=== PATIENT | female | born 1995 | race Caucasian/White ===

== ENCOUNTER 2016-07-27 15:59 | Outpatient (CLI) | payer BC ==
[2016-07-27 16:25] LABS: Bilirubin Negative (Negative); Blood, Urine Negative (Negative); Clarity Clear (Clear); Glucose, Urine (Dipstick) Negative (Negative); Leukocyte Small (Negative); Nitrite Negative (Negative); Protein, Urine (Dipstick) Negative (Neg-Trace)
== END 2016-07-27 16:00 ==
LOC: MADLABBHPM 15:59
PROVIDERS: ATTEND Family Medicine
DX: R30.0 Dysuria (principal)
CPT/HCPCS: 81001; 87086

== ENCOUNTER 2017-04-06 14:33 | Emergency (ER) | payer BC, OTHER ==
[2017-04-06 15:12] LABS: Bilirubin Negative (Negative); Blood, Urine Negative (Negative); Clarity Clear (Clear); Glucose, Urine (Dipstick) Negative (Negative); Leukocyte Negative (Negative); Nitrite Negative (Negative); Protein, Urine (Dipstick) Negative (Neg-Trace); Urobilinogen 0.2 mg/dL (0.2-1.0)
[2017-04-06 15:13] LABS: Bacteria/HPF Rare-Few HPF (None Seen); RBC/HPF None Seen HPF (0-3); Squamous Epithelial 0-3 HPF (0-3); WBC/HPF 0-3 HPF (0-3)
== END 2017-04-06 16:40 | disposition home or self-care (01) ==
LOC: MADERS 14:33
DX: O99.89 Other specified diseases and conditions complicating pregnancy, childbirth and the puerperium (principal); R10.2 Pelvic and perineal pain
CPT/HCPCS: 81001; 87086; 99283

== ENCOUNTER 2023-12-15 10:49 | Emergency (ER) | payer BC ==
[2023-12-15] MEDS ORDERED: Fluorescein Opthalmic Strip ONE (11:14)
[2023-12-15] MEDS ORDERED: Tetracaine 0.5% PF 4 ML BOT ONE (11:14)
== END 2023-12-15 12:29 | disposition home or self-care (01) ==
LOC: MADERS 10:49
DX: H11.31 Conjunctival hemorrhage, right eye (principal); F17.290 Nicotine dependence, other tobacco product, uncomplicated
CPT/HCPCS: 70486

== ENCOUNTER 2025-01-16 09:36 | Emergency (ER) | payer SELFPAY ==
[2025-01-16 10:36] LABS: #Basophils 0.1 thou/uL (0.0-0.2); #Eosinophils 0.2 thou/uL (0.0-0.7); #Lymphocytes 2.4 thou/uL (1.20-3.40); #Monocytes 0.8 thou/uL (0.11-0.59); #Neutrophils 10.3 thou/uL (1.40-6.50); %Basophils 1.0 % (0.0-1.0); %Eosinophils 1.1 % (0.0-10.0); %Lymphocytes 17.5 % (21.0-51.0); %Monocytes 6.0 % (0.0-10.0); %Neutrophils 74.4 % (42.0-75.0); Hematocrit 43.0 % (36.0-47.0); Hemoglobin 14.6 g/dL (12.0-16.0); Mean Corpuscular Hemoglobin 30.0 pg (27.0-31.0); Mean Corpuscular Volume 88.9 fl (78.0-98.0); Platelet Count 319 10x3/uL (130-400); Red Blood Cell (RBC) Count 4.85 mill/uL (4.20-5.40); White Blood Cell (WBC) Count 13.9 10x3/uL (4.8-10.8)
[2025-01-16 10:47] LABS: BHCG - Serum Negative (NEGATIVE); Pregs Control Background? CLEAR/WHITE (CLR/WHITE); Pregs Control Bar Appear? YES (CONTROL BAR)
[2025-01-16 10:52] LABS: ALT (SGPT) 16 U/L (Less than 34); AST (SGOT) 42 U/L (11-34); Albumin 4.5 g/dL (3.1-4.5); Alkaline Phosphatase 72 U/L (40-110); Anion Gap 16 mmol/L (10-20); BUN (Urea Nitrogen) 24 mg/dL (7.0-18.7); Bilirubin, Total 0.5 mg/dL (0.3-1.2); Calc. Creatinine Clearance 0 mL/min (70-130); Calcium 9.4 mg/dL (7.8-10.44); Carbon Dioxide 26 mmol/L (22-29); Chloride 105 mmol/L (98-107); Globulin 2.9 g/dL (2.4-3.5); Glucose 84 mg/dL (70-105); Potassium 4.7 mmol/L (3.5-5.1); Sodium 142 mmol/L (136-145)
[2025-01-16] MEDS ORDERED: Ketorolac Tromethamine 30 MG (1 mL) VIAL ONE (11:00)
[2025-01-16 11:12] LABS: Pregnancy Test - Urine (BHCG) Negative (Negative); Pregu Control Background? CLEAR/WHITE (CLR/WHITE); Pregu Control Bar Appear? YES (CONTROL BAR)
[2025-01-16] MEDS ORDERED: Lidocaine 1% (PF) 30 ML VIAL ONE (13:20)
== END 2025-01-16 14:12 | disposition home or self-care (01) ==
LOC: MADERS 09:36
DX: L03.114 Cellulitis of left upper limb (principal)
CPT/HCPCS: 10160; 36415; 80053; 81025; 83605; 84703; 85025; 87040; 96365; 96366; 96367; 96375; J1885; J2543; J2919; J3373; J7030

== ENCOUNTER 2025-03-07 20:13 | Emergency (ER) | payer SELFPAY ==
[2025-03-07] MEDS ORDERED: Boostrix 0.5 ML (Tdap) VIAL (>/=7 yrs of age) ONE (20:34)
[2025-03-07] MEDS ORDERED: Lidocaine 1% PF 5 ML VIAL ONE (20:50)
[2025-03-07] MEDS ORDERED: Bacitracin 1 PK ONE (21:39)
[2025-03-07] MEDS ORDERED: Cephalexin 500 MG CAP ONE (21:39)
== END 2025-03-07 21:53 | disposition home or self-care (01) ==
LOC: MADERS 20:13
DX: S61.216A Laceration without foreign body of right little finger without damage to nail, initial encounter (principal); Z23 Encounter for immunization; F17.290 Nicotine dependence, other tobacco product, uncomplicated; W26.8XXA Contact with other sharp object(s), not elsewhere classified, initial encounter
CPT/HCPCS: 12001; 90471; 90715

== ENCOUNTER 2025-03-15 13:14 | Emergency (ER) | payer SELFPAY | END 2025-03-15 14:21 | disposition home or self-care (01) | LOC: MADERS 13:14 | DX: S83.91XA Sprain of unspecified site of right knee, initial encounter (principal); F17.290 Nicotine dependence, other tobacco product, uncomplicated; X50.1XXA Overexertion from prolonged static or awkward postures, initial encounter | CPT/HCPCS: 99283 ==